=== PATIENT | male | born 1950 | race African-American/Black ===

== ENCOUNTER 2017-04-11 16:22 | Emergency (ER) | payer MEDICARE, OTHER ==
[~2017-04-11] VITALS: Ht 180.3 cm; Wt 86.2 kg
[~2017-04-11 16:22] MED LIST: HUMALOG100 UNIT/2 SQ; IBUPROFEN800 MG PO; LANTUS5 UNITS *
[2017-04-11 16:31] VITALS: BP 168/88
--- NOTE | 2017-04-11 16:45 | Emergency Room Report ---
History of Present Illness General Chief Complaint: Abnormal Labs Source: Patient, EMS Present Illness HPI Patient is a 66-year-old male presented after having increased altered mental status. Patient had prior history of type 1 diabetes. Patient had not been eating this morning. Patient subsequently had a hypoglycemic episode. Patient taken his insulin as normal but did not eat. The patient subsequently became less responsive and was given IM glucagon by EMS. The patient had subsequent improvement in his blood sugar. The patient states he feels fine now and denies any symptoms. Allergies: Coded Allergies: No Known Allergies (Unverified , 07/21/12) Patient History Past Medical History: see triage record, DM Reviewed Nursing Documentation: PMH: Agreed, PSxH: Agreed Nursing Documentation-PMH Past Medical History: No History, Except For Hx Cardiac Problems: No - HIV Hx Diabetes: Yes Hx Cancer: No Hx Gastrointestinal Problems: Yes Hx Neurological Problems: No Hx Cerebrovascular Accident: No Hx Transient Ischemic Attacks: No Hx Dementia: No Hx Alzheimer's Disease: No Hx Parkinson's Disease: No Hx Meningitis: No Hx Encephalitis: No Hx Seizures: No Hx Epilepsy: No Hx Multiple Sclerosis: No Hx Cerebral Palsy: No Hx Amyotrophic Lat Sclerosis: No Hx Guillian-[place] Syndrome: No Hx Paralysis: No Hx Peripheral Neuropathy: Yes - BILATERAL FEET Hx Spinal Cord Injury: No Hx Head Trauma: No Hx Traumatic Brain Injury: No Hx Memory Loss: No Hx Concentration Difficulty: No Hx Speech Problem: No Hx Tremors: No Hx Vertigo: No Hx Dizziness: Yes - EVERY DAY. AFTER PT TAKES VICODIN FOR PAIN Hx Syncope: No Hx Headaches: Yes - EVERY DAY Hx Aphasia: No Hx Dysphasia: No Hx Numbness: Yes - BILATERAL FEET AND LEGS Hx Weakness: Yes - BILATERAL FEET AND LEGS Hx Fatigue: Yes - NO ENERGY Hx Neurologic Surgery: No Hx Brain Shunt: No Review of Systems All Other Systems: negative except mentioned in HPI Physical Exam Vital Signs Date Time Temp Pulse Resp B/P Pulse Ox O2 Delivery O2 Flow Rate FiO2 04/11/17 16:13 97.5 84 16 178/85 98 Room Air Sp02 EP Interpretation: reviewed, normal General Appearance: normal inspection, well appearing, no apparent distress, alert, GCS 15 Head: atraumatic ENT: normal ENT inspection, hearing grossly normal, normal voice Neck: normal inspection, full range of motion, supple, no bony tend Respiratory: normal inspection, lungs clear, normal breath sounds, no respiratory distress, no retraction, no wheezing Cardiovascular #1: regular rate, rhythm, no edema Gastrointestinal: normal inspection, normal bowel sounds, non tender, soft, no guarding, no hernia Genitourinary: no CVA tenderness Musculoskeletal: normal inspection, back normal, normal range of motion Neurologic: normal inspection, alert, oriented x3, responsive, pickle processor III-XII nml as tested, speech normal Psychiatric: normal inspection, judgement/insight normal, mood/affect normal Skin: normal inspection, normal color, no rash Medical Decision Making Diagnostic Impression: Primary Impression: Hypoglycemia associated with diabetes ER Course Patient presented for altered mental status.Differential diagnosis included but was not limited to ischemic stroke, subarachnoid hemorrhage, hypoglycemia, spinal cord injury, neurodegenerative disorder, urinary tract infection, hypoxemia. Patient's benign exam and does not appear to require any further imaging or laboratory testing at this time. A repeat blood sugar was greater than 100. Patient tolerated by mouth feeding. The patient stated he did not want to stay in the hospital the patient appears to be awake alert and able to care for himself.The patient is advised to continue monitor his blood sugar home. He was advised to lower his Lantus dose for one day. The patient is advised to recheck with his prior care physician for reevaluation. He is advised to return to the hospital for a any other concerning symptoms. Last Vital Signs Date Time Temp Pulse Resp B/P Pulse Ox O2 Delivery O2 Flow Rate FiO2 04/11/17 16:31 97.4 87 15 168/88 98 Room Air Status: improved Disposition: HOME, SELF-CARE Condition: Stable Myles Fuller Apr 11, 2017 16:45
[2017-04-11 17:17] VITALS: BP 168/88
== END 2017-04-11 17:18 | disposition home or self-care (01) ==
LOC: EDBD 16:22 → EMR 17:00
DX: E11.65 Type 2 diabetes mellitus with hyperglycemia (principal)
CPT/HCPCS: 82962; 99282